=== PATIENT | male | born 2000 | race Caucasian/White ===

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

== ENCOUNTER 2022-10-05 11:04 | Emergency (ER) | payer SELFPAY ==
[2022-10-05] MEDS ORDERED: Acetaminophen 500 MG TAB ONE ×2 (11:44→11:47)
[2022-10-05] MEDS ORDERED: HYDROcodone/Acetaminophen 7.5/325 mg Tablet ONE ×2 (11:48→11:51)
[2022-10-05 12:42] LABS: Bilirubin Negative (Negative); Blood, Urine Negative (Negative); Clarity Clear (Clear); Glucose, Urine (Dipstick) Normal (Negative); Ketone, Urine Negative (Negative); Leukocyte Negative Leu/uL (Negative); Nitrite Negative (Negative); Protein, Urine (Dipstick) Negative (Neg-Trace); Specific Gravity, Urine 1.022 (1.002-1.036); Urobilinogen Normal mg/dL (Less than 2)
[2022-10-05] MEDS ORDERED: Lidocaine 1% MPF 2 ML VIAL ONE (14:14)
[2022-10-05] MEDS ORDERED: cefTRIAXone (ROCEPHIN) 500 MG VIAL ONE (14:14)
== END 2022-10-05 15:00 | disposition home or self-care (01) ==
LOC: ERS 11:04
DX: N50.811 Right testicular pain (principal); N48.89 Other specified disorders of penis
CPT/HCPCS: 76870; 81003; 93976; 96372; J0696